=== PATIENT | female | born 1995 | race Caucasian/White ===

== ENCOUNTER 2018-10-09 17:37 | Emergency (ER) | payer SELFPAY ==
[~2018-10-09] VITALS: Ht 157.5 cm; Wt 85.7 kg
[2018-10-09 17:58] VITALS: BP 111/57
--- NOTE | 2018-10-09 19:03 | NUR ---
PT AMB TO BED 11
--- NOTE | 2018-10-09 19:10 | NUR ---
PT PRESENTED ER WITH C/O BUG BITE, RASH, THE THE LOWER EXTREMETIES X 3 DAYS. PT STATED SHE POPPED HER "BUG BITE", WHICH PER PT HAD FLUID IN IT, THEN SPOTS STARTED TO APPEAR IN LEGS. THERE IS SOME SWELLING AND REDNESS TO SIGHT. NO DISCHARGE NOTED. PT IS A/O X 4. NO PAIN AT THIS TIME. ERMD MADE AWARE OF STATUS, SAFETY MEASURES IN PLACE, BED RAILS UP X 1. FAMILY AT BEDSIDE.
[2018-10-09 19:35] VITALS: BP 111/57
== END 2018-10-09 19:35 | disposition home or self-care (01) ==
LOC: MED 17:37
DX: S80.861A Insect bite (nonvenomous), right lower leg, initial encounter (principal); S80.862A Insect bite (nonvenomous), left lower leg, initial encounter; L08.9 Local infection of the skin and subcutaneous tissue, unspecified; W57.XXXA Bitten or stung by nonvenomous insect and other nonvenomous arthropods, initial encounter; Y93.89 Activity, other specified; Y92.89 Other specified places as the place of occurrence of the external cause; Y99.8 Other external cause status
CPT/HCPCS: 99283